=== PATIENT | female | born 1985 | race Caucasian/White ===

== ENCOUNTER 2019-07-31 20:23 | Emergency (ER) | payer OTHER, SELFPAY ==
[2019-07-31 21:05] VITALS: BP 143/83; PULSE 115; RESP 16; TEMP 37.1; O2SAT 95; BMI 39.6
--- NOTE | 2019-07-31 21:38 | XR_ITS ---
WS: [id number] LEFT ANKLE: 3 VIEW(S) TECHNIQUE: AP, oblique(s) and lateral. HISTORY: trauma COMPARISON: None available. Normal anatomic alignment with no fracture or dislocation. No joint effusion or widening of the ankle mortise. No significant degenerative changes at the joint spaces. Moderate soft tissue edema around the ankle. No joint effusion. XR/XR ankle LT min 3V* [id number] IMPRESSION: Soft tissue edema around the ankle. No fracture.
--- NOTE | 2019-07-31 22:21 | ED_ITS ---
HPI - Extremity Problem General: Chief complaint: Extremity Injury, Lower Stated complaint: ankle pain Time Seen by Provider: 07/31/19 22:15 History of Present Illness: HPI Narrative: Patient was going downstairs night twisted her ankle. MD Complaint: extremity pain and extremity swelling Onset (ago): minute(s) Pain Consistency: constant Location: left and lower extremity Severity scale (1-10): 5 Quality: aching Radiation: none Review of Systems General: Reports: 10 or more systems reviewed and unremarkable except in HPI and below PFSH ED PFSH: Statuses (acute, chronic, etc) shown below reflect problem list status as previously entered and may not be historically accurate Social History Smoking and tobacco status: current every day smoker Physical Exam Const: COMMON NORMALS: no apparent distress Extremity: LEFT LOWER EXTREMITY: Yes ankle joint (Tender with swelling to the lateral malleolus area neurovascular intact able to bear weight) Course Vital Signs: Vital signs: Vital Signs Temperature 98.8 F 07/31/19 21:05 Pulse Rate 115 H 07/31/19 21:05 Respiratory Rate 16 07/31/19 21:05 Blood Pressure 143/83 07/31/19 21:05 Pulse Oximetry 95 07/31/19 21:05 Discharge Plan Discharge Patient Disposition: Home, Self-Care Clinical Impression: Ankle sprain and strain Condition: Stable Discharge Orders: Discharge Order (Routine); Ordered 07/31/19 Ordered By: Devyn Vernon Discharge Diet: Usual diet Discharge Activity: Increase activity as tolerated Patient Instructions: Ankle Sprain (ED) Activity Restrictions/Additional Instructions: Follow-up with medical provider as directed. Return to the ER or your medical provider if condition worsens. Please read and understand discharge instructions. If any questions ask please. 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
== END 2019-07-31 22:50 | disposition home or self-care (01) ==
PROVIDERS: Emergency Provider Nurse Practitioner Family
DX: S93.402A Sprain of unspecified ligament of left ankle, initial encounter (principal); S96.912A Strain of unspecified muscle and tendon at ankle and foot level, left foot, initial encounter; X50.1XXA Overexertion from prolonged static or awkward postures, initial encounter; F17.210 Nicotine dependence, cigarettes, uncomplicated
CPT/HCPCS: 73610; 99281; 99282

== ENCOUNTER 2023-01-24 17:43 | Emergency (ER) | payer SELFPAY ==
[2023-01-24 18:17] VITALS: BP 134/82; PULSE 91; RESP 16; TEMP 36.7; O2SAT 96; BMI 39.6
[2023-01-24 19:30] VITALS: BP 125/81; PULSE 73; TEMP 37; O2SAT 96
[2023-01-24] MEDS: diphenhydrAMINE 50 mg/mL SDV 1mL IVP (20:25)
[2023-01-24] MEDS: famotidine 20 mg/2 mL INJ 40 MG IVP (20:26)
[2023-01-24] MEDS: methylPREDNISolone sod succ 125 MG in water for injection-sterile 2 ML 24 MG IVP (20:26)
--- NOTE | 2023-01-24 20:33 | W.ED.SKABFB ---
HPI - Skin/Abscess/Foreign Bdy General: Chief complaint: Skin/Abscess/Foreign Body Stated complaint: Face swelling, Throat Tightness Time Seen by Provider: 01/24/23 19:59 Source: patient Mode of arrival: ambulatory Limitations: no limitations History of Present Illness: 37-year-old female states she had a urticarial rash to her chest and face over the last 2 days states very pruritic in nature and seem to worsen today she denies any shortness of breath. She denies any known allergic contacts. Denies any worsening proving factors does not take any meds for it. Associated symptoms: Deny chills, fever(s), nausea or vomiting Review of Systems Const: Denies: fever(s) or chills ENMT: Denies: throat pain or dental pain Card: Denies: chest pain Resp: Denies: dyspnea GI: Denies: abdominal pain, nausea or vomiting Musc: Denies: neck pain or back pain Skin/Breast: Reports: rash Neuro: Denies: headache(s) All/Imm: Reports: urticaria; Denies: throat swelling PFSH ED PFSH: Social History Smoking and tobacco status: current every day smoker Physical Exam Const: COMMON NORMALS: no acute distress, patient oriented x3 and healthy appearing HENMT: COMMON NORMALS: normocephalic and atraumatic HEAD & SCALP: normocephalic and atraumatic OTHER: No throat swelling Eye: COMMON NORMALS: conjunctivae normal CONJUNCTIVA: Yes conjunctivae normal Neck/C-Spine: COMMON NORMALS: full ROM and supple Chest: COMMONS NORMALS: normal palpation of entire chest wall Resp: COMMON NORMALS: normal respiratory effort, No retractions, No use of accessory muscles and clear to auscultation bilaterally AUSCULTATION: clear to auscultation bilaterally Cardio: COMMON NORMALS: regular rate, regular rhythm and No murmurs present (Cardio) RATE: regular rate RHYTHM: regular rhythm GI: COMMON NORMALS: Normal to inspection, nondistended, normoactive bowel sounds present, Soft to palpation, non-tender and no masses PALPATION: Yes Soft to palpation Extremity: COMMON NORMALS: normal to inspection and full ROM Neuro: COMMON NORMALS: patient oriented x3, moves all extremities and no focal motor deficits Psych: COMMON NORMALS: mental status grossly normal, Normal thought process present and cooperative THOUGHT PROCESS: Normal thought process present Skin: COMMON NORMALS: no wounds NARRATIVE SKIN EXAM: Rash noted to trunk and arms consistent with allergic reaction Course Vital Signs: Vital signs: Vital Signs Temperature 98.6 F 01/24/23 19:30 Pulse Rate 73 01/24/23 19:30 Respiratory Rate 16 01/24/23 18:17 Blood Pressure 125/81 01/24/23 19:30 Pulse Oximetry 96 01/24/23 19:30 Oxygen Delivery Me thod Room Air 01/24/23 19:30 MDM - Skin/Abscess/Foreign Bdy Medicial Decision Making Patient presents with rash likely from allergic reaction she has no breathing difficulty patient given IV meds here we will place her on prednisone for home she is to take Pepcid and Benadryl she is return if worsening Discharge Plan Discharge Patient Disposition: Home Clinical Impression: Allergic reaction Condition: Stable Prescriptions: New prednisone 50 mg tablet 50 mg PO DAILY Qty: 5 0RF famotidine [Pepcid] 40 mg tablet 40 mg PO DAILY Qty: 7 0RF No Action ondansetron 8 mg tablet,disintegrating 8 mg PO Q8H PRN (Reason: nausea and vomiting) 5 Days Qty: 15 0RF Discharge Orders: Discharge ED (Routine); Ordered 01/24/23 Ordered By: Blake Edwards Discharge Diet: Advance as tolerated Discharge Activity: Resume usual activity Patient Instructions: General Allergic Reaction (ED) Coding 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
[2023-01-24 20:49] VITALS: BP 125/81; PULSE 73; RESP 16; TEMP 37; O2SAT 96
== END 2023-01-24 20:50 | disposition home or self-care (01) ==
PROVIDERS: Emergency Provider Emergency Medicine
DX: T78.40XA Allergy, unspecified, initial encounter (principal); F17.210 Nicotine dependence, cigarettes, uncomplicated
CPT/HCPCS: 96374; 96375; 99284; J1200; J2930; J3490

== ENCOUNTER 2024-02-24 08:33 | Outpatient (CLI) | payer OTHER, SELFPAY ==
--- NOTE | 2024-02-24 08:30 | MM_ITS ---
WS: [id number] BILATERAL SCREENING DIGITAL TOMOSYNTHESIS MAMMOGRAM WITH CAD HISTORY: Z12.39 - Encounter for other screening for malignant neop... COMPARISON: None available. Bilateral CC and MLO views with tomosynthesis and synthetic mammography submitted. Computer aided det ection analyzed. Breast composition: There are scattered areas of fibroglandular density. No suspicious masses, microc alcifications or architectural distortion. MM/[place] [id number] IMPRESSION: BI-RADS: 1-Negative FOLLOW UP: 1 Year Follow-up
== END 2024-02-24 08:34 | disposition home or self-care (01) ==
LOC: RAD 08:33
PROVIDERS: PCP Nurse Practitioner Women's Health; Visit Provider Nurse Practitioner Women's Health
DX: Z12.31 Encounter for screening mammogram for malignant neoplasm of breast (principal); R92.323 Mammographic fibroglandular density, bilateral breasts
CPT/HCPCS: 77063; 77067

== ENCOUNTER → 2024-03-08 08:55 | Outpatient (BNVA) | payer OTHER, SELFPAY | PROVIDERS: PCP Nurse Practitioner Women's Health; Visit Provider Nurse Practitioner Women's Health | DX: Z30.9 Encounter for contraceptive management, unspecified (principal) | CPT/HCPCS: 81025 ==

== ENCOUNTER 2024-03-15 19:28 | Emergency (ER) | payer OTHER, SELFPAY ==
[2024-03-15 19:53] VITALS: BP 175/90; PULSE 110; RESP 16; TEMP 36.9; O2SAT 98; BMI 40.2
[2024-03-15 20:32] VITALS: BP 171/89; PULSE 100; RESP 16; O2SAT 99
--- NOTE | 2024-03-15 20:36 | W.ED.DENTAL ---
HPI - Dental/Oral General: Chief complaint: Dental/Oral Stated complaint: tooth pain Time Seen by Provider: 03/15/24 19:41 Source: patient Mode of arrival: ambulatory Limitations: no limitations History of Present Illness: 39-year-old female who states she has had right lower dental pain for last 2 days she seen urgent care today started antibiotics states she has had increased swelling feels like she has had an abscess develop. She denies any trismus denies any fevers denies any difficulty vomiting. Associated symptoms: Denies fever(s) Related Data Home Medications Medication Instructions Recorded Confirmed etonogestrel 68 mg subdermal subdermal ONCE 02/09/24 03/15/24 implant (Nexplanon) Previous Rx's Medication Instructions Recorded famotidine 40 mg tablet (Pepcid) 40 mg PO DAILY #7 tabs 01/24/23 amoxicillin 875 mg-potassium 1 tab PO BID 7 days #14 tabs 03/15/24 clavulanate 125 mg tablet ibuprofen 800 mg tablet 800 mg PO Q8H PRN pain #10 tabs 03/15/24 Allergies Allergy/AdvReac Type Severity Reaction Status Date / Time No Known Allergies Allergy Verified 03/15/24 11:33 Review of Systems Const: Denies: fever(s), chills, body aches or change in appetite ENMT: Reports: dental pain; Denies: throat pain Card: Denies: chest pain Resp: Denies: dyspnea GI: Denies: abdominal pain, nausea, vomiting or diarrhea Musc: Denies: neck pain or back pain Skin/Breast: Denies: rash Neuro: Denies: headache(s) PFSH ED PFSH: Family History Mother Breast cancer Grandmother Breast cancer Hypertension Father Heart disease Hypertension Grandfather Heart disease Denies family history of Colon cancer Ovarian cancer Prostate cancer Diabetes Uterine cancer Thyroid disease Stroke Social History Smoking and tobacco/nicotine status: unknown if used tobacco/nicotine Physical Exam Const: COMMON NORMALS: no acute distress, patient oriented x3 and healthy appearing HENMT: COMMON NORMALS: normocephalic and atraumatic HEAD & SCALP: normocephalic and atraumatic OTHER: Tenderness over right lower molar with abscess formation no trismus no difficulty swallowing Neck/C-Spine: COMMON NORMALS: full ROM and supple Chest: COMMONS NORMALS: normal inspection of the chest Resp: COMMON NORMALS: normal respiratory effort Cardio: COMMON NORMALS: regular rate, regular rhythm and No murmurs present (Cardio) RATE: regular rate RHYTHM: regular rhythm Extremity: COMMON NORMALS: normal to inspection and full ROM Neuro: COMMON NORMALS: patient oriented x3, moves all extremities and no focal motor deficits Psych: COMMON NORMALS: mental status grossly normal, Normal thought process present and cooperative THOUGHT PROCESS: Normal thought process present Skin: COMMON NORMALS: no rashes or lesions noted and no wounds GENERAL SKIN EXAM: no rashes or lesions noted Procedures Nerve Block Nerve Block 1: Time out performed: Yes Local Anesthetic: bupivacaine 0.5% Amount of anesthesia used (mL): 8 Intraoral Nerve Block: inferior alveolar Procedure Successful: Yes Patient Tolerated Procedure: well Complications: none Course Vital Signs: Vital signs: Vital Signs Temperature 98.4 F 03/15/24 19:53 Pulse Rate 100 03/15/24 20:32 Respiratory Rate 16 03/15/24 20:32 Blood Pressure 171/89 03/15/24 20:32 Pulse Oximetry 99 03/15/24 20:32 Oxygen Delivery Me thod Room Air 03/15/24 20:32 MDM - Dental/Oral Medical Decision Making Patient presents for dental abscess did incise and drain it with slight drainage here. She has no trismus we will give her an IM antibiotic here she feels much improved after dental block informed she has worsening swelling or any trismus she is to return immediately she understands agrees to plan Medical Records I reviewed the patient's medical records. 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
--- NOTE | 2024-03-15 20:54 | W.ED.DENTAL ---
HPI - Dental/Oral General: Chief complaint: Dental/Oral Stated complaint: tooth pain Time Seen by Provider: 03/15/24 19:41 Source: patient Mode of arrival: ambulatory Limitations: no limitations History of Present Illness: . Related Data Home Medications Medication Instructions Recorded Confirmed etonogestrel 68 mg subdermal subdermal ONCE 02/09/24 03/15/24 implant (Nexplanon) Previous Rx's Medication Instructions Recorded famotidine 40 mg tablet (Pepcid) 40 mg PO DAILY #7 tabs 01/24/23 amoxicillin 875 mg-potassium 1 tab PO BID 7 days #14 tabs 03/15/24 clavulanate 125 mg tablet ibuprofen 800 mg tablet 800 mg PO Q8H PRN pain #10 tabs 03/15/24 Allergies Allergy/AdvReac Type Severity Reaction Status Date / Time No Known Allergies Allergy Verified 03/15/24 11:33 PFS ED PFSH: Family History Mother Breast cancer Grandmother Breast cancer Hypertension Father Heart disease Hypertension Grandfather Heart disease Denies family history of Colon cancer Ovarian cancer Prostate cancer Diabetes Uterine cancer Thyroid disease Stroke Social History Smoking and tobacco/nicotine status: unknown if used tobacco/nicotine Procedures Abscess I/D Site: other (dental) Side (if applicable): right Technique: incised with #11 blade Irrigation: No Packing used?: none Course Vital Signs: Vital signs: Vital Signs Temperature 98.4 F 03/15/24 19:53 Pulse Rate 100 03/15/24 20:32 Respiratory Rate 16 03/15/24 20:32 Blood Pressure 171/89 03/15/24 20:32 Pulse Oximetry 99 03/15/24 20:32 Oxygen Delivery Me thod Room Air 03/15/24 20:32 MDM - Dental/Oral Medical Decision Making Addendum to previous note to add procedure note for dental abscess I&D No radiology studies performed this visit Discharge Plan Discharge Patient Disposition: Home Clinical Impression: Dental abscess Condition: Stable Prescriptions: No Action Nexplanon 68 mg implant subdermal ONCE amoxicillin-pot clavulanate 875-125 mg tablet 1 tab PO BID 7 Days Qty: 14 0RF ibuprofen 800 mg tablet 800 mg PO Q8H PRN (Reason: pain) Qty: 10 0RF Pepcid 40 mg tablet 40 mg PO DAILY Qty: 7 0RF Discharge Orders: Discharge ED (Routine); Ordered 03/15/24 Ordered By: Blake Edwards Referrals: Velia Wade, BENCH SHEAR OPERATOR [Primary Care Provider] - Discharge Diet: Advance as tolerated Discharge Activity: Resume usual activity Patient Instructions: Dental Abscess (ED) Coding Level of Care 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
[2024-03-15] MEDS: cefTRIAXone 1,000 MG in water for injection-sterile 2.1 ML 2.1 MG IM (21:19)
[2024-03-15 22:10] VITALS: BP 171/96; PULSE 86; RESP 16; O2SAT 100
== END 2024-03-15 22:11 | disposition home or self-care (01) ==
PROVIDERS: Emergency Provider Emergency Medicine; PCP Nurse Practitioner Women's Health
DX: K04.7 Periapical abscess without sinus (principal)
CPT/HCPCS: 41800; 96372; 99284; J0696

== ENCOUNTER → 2025-04-23 11:30 | Outpatient (BNVA) | payer SELFPAY | PROVIDERS: PCP Nurse Practitioner Women's Health; Visit Provider Nurse Practitioner | DX: R39.9 Unspecified symptoms and signs involving the genitourinary system (principal) | CPT/HCPCS: 81000; 87086 ==